=== PATIENT | female | born 1995 | race Caucasian/White ===

== ENCOUNTER 2019-01-24 18:52 | Emergency (ER) | payer OTHER ==
[2019-01-24] MEDS ORDERED: IBUPROFEN 200 MG TAB PO ONE (20:26)
[2019-01-24] MEDS ORDERED: IBUPROFEN 400 MG TAB ONE (20:26)
--- NOTE | 2019-01-24 20:30 | EDPHYS ---
Physician Documentation [facility] Name: Ijeoma Belle Age: 23 yrs Sex: Female : 1995 Arrival Date: 01/24/2019 Time: 18:58 Bed 11 Private MD: ED Physician Rodolfo Ball HPI: 01/24 20:10 This 23 yrs old Female presents to ER via Ambulatory with complaints of Back favian Pain. 20:10 The patient presents with pain that is acute, with no known mechanism of injury. The favian symptoms are located in the low back. Onset: The symptoms/episode began/occurred 6 day(s) ago. The pain radiates to the left low back and right low back. Associated signs and symptoms: The patient has no apparent associated signs or symptoms. Modifying factors: The patient symptoms are alleviated by remaining still, rest, the patient symptoms are aggravated by any movement, bending, lifting, movement. Severity of symptoms: At their worst the symptoms were mild, in the emergency department the symptoms are unchanged. The patient has not experienced similar symptoms in the past. HUMAN RESOURCES TEMP: 19:19 LMP 01/24/2019 bb Historical: - Allergies: 19:19 Amoxicillin; bb - Home Meds: 19:19 None [Active]; bb - PMHx: 19:19 None; bb - PSHx: 19:19 right ankle; bb - Immunization history:: Adult Immunizations up to date. - Social history:: Smoking status: Patient/guardian denies using tobacco, Patient uses alcohol, but reports only rare drinking. Patient/guardian denies using street drugs. - Ebola Screening: : No symptoms or risks identified at this time. - Family history:: not pertinent. ROS: 20:10 Constitutional: Negative for fever, chills, and weight loss, Eyes: Negative for injury, favian pain, redness, and discharge, ENT: Negative for injury, pain, and discharge, Neck: Negative for injury, pain, and swelling, Cardiovascular: Negative for chest pain, palpitations, and edema, Respiratory: Negative for shortness of breath, cough, wheezing, and pleuritic chest pain, Abdomen/GI: Negative for abdominal pain, nausea, vomiting, diarrhea, and constipation, : Negative for injury, bleeding, discharge, and swelling, MS/Extremity: Negative for injury and deformity, Skin: Negative for injury, rash, and discoloration, Neuro: Negative for headache, weakness, numbness, tingling, and seizure, Psych: Negative for depression, anxiety, suicide ideation, homicidal ideation, and hallucinations, Allergy/Immunology: Negative for hives, rash, and allergies, Endocrine: Negative for neck swelling, polydipsia, polyuria, polyphagia, and marked weight changes, Hematologic/Lymphatic: Negative for swollen nodes, abnormal bleeding, and unusual bruising. 20:10 Back: Positive for decreased range of motion, pain at rest, pain with movement. Exam: 20:10 Constitutional: This is a well developed, well nourished patient who is awake, alert, favian and in no acute distress. Head/Face: Normocephalic, atraumatic. Eyes: Pupils equal round and reactive to light, extra-ocular motions intact. Lids and lashes normal. Conjunctiva and sclera are non-icteric and not injected. Cornea within normal limits. Periorbital areas with no swelling, redness, or edema. ENT: Nares patent. No nasal discharge, no septal abnormalities noted. Tympanic membranes are normal and external auditory canals are clear. Oropharynx with no redness, swelling, or masses, exudates, or evidence of obstruction, uvula midline. Mucous membranes moist. Neck: Trachea midline, no thyromegaly or masses palpated, and no cervical lymphadenopathy. Supple, full range of motion without nuchal rigidity, or vertebral point tenderness. No Meningismus. Chest/axilla: Normal chest wall appearance and motion. Nontender with no deformity. No lesions are appreciated. Cardiovascular: Regular rate and rhythm with a normal S1 and S2. No gallops, murmurs, or rubs. Normal PMI, no JVD. No pulse deficits. Respiratory: Lungs have equal breath sounds bilaterally, clear to auscultation and percussion. No rales, rhonchi or wheezes noted. No increased work of breathing, no retractions or nasal flaring. Abdomen/GI: Soft, non-tender, with normal bowel sounds. No distension or tympany. No guarding or rebound. No evidence of tenderness throughout. Skin: Warm, dry with normal turgor. Normal color with no rashes, no lesions, and no evidence of cellulitis. MS/ Extremity: Pulses equal, no cyanosis. Neurovascular intact. Full, normal range of motion. Neuro: Awake and alert, GCS 15, oriented to person, place, time, and situation. Cranial nerves II-XII grossly intact. Motor strength 5/5 in all extremities. Sensory grossly intact. Cerebellar exam normal. Normal gait. Psych: Awake, alert, with orientation to person, place and time. Behavior, mood, and affect are within normal limits. 20:10 Back: pain, that is mild, that is moderate, ROM is painful, normal spinal alignment noted, CVA tenderness, is absent, muscle spasm, is appreciated in the left low back and right low back. Vital Signs: 19:19 BP 116 / 59; Pulse 103; Resp 18 S; Temp 98.5(O); Pulse Ox 100% on R/A; Weight 90.72 kg bb (R); Height 5 ft. 7 in. (170.18 cm) (R); Pain 5/10; 21:48 Pulse 82; Resp 20; Pulse Ox 100% on R/A; aj1 19:19 Body Mass Index 31.32 (90.72 kg, 170.18 cm) MDM: 19:32 Patient medically screened. [facility] 20:10 Data reviewed: vital signs, nurses notes, lab test result(s), radiologic studies, plain [facility] films. 01/24 20:40 Order name: Urine Dipstick--Ancillary (enter results) pr 01/24 20:40 Order name: Urine --Ancillary (enter results) pr 01/24 20:10 Order name: Urine Dipstick-Ancillary (obtain specimen); Complete Time: 20:39 [facility] 01/24 20:10 Order name: Urine Test (obtain specimen); Complete Time: 20:39 [facility] 01/24 20:10 Order name: Lumbar Spine (3 Views) XRAY [facility] Administered Medications: 20:39 Drug: Motrin 600 mg Route: PO; aj1 21:49 Follow up: Response: No adverse reaction aj1 Disposition: 01/24/19 20:30 Discharged to Home. Impression: Low back pain, Sciatica, unspecified side, Scoliosis, unspecified. - Condition is Stable. - Discharge Instructions: Back Pain, Adult, Musculoskeletal Pain, Sciatica, Back Injury Prevention, Nxav-[id number], Back Pain, Adult, Wxpp-al-Elnw, Sciatica, Yigt-vc-Jgud. - Prescriptions for Ibuprofen 600 mg Oral Tablet - take 1 tablet by ORAL route every 8 hours As needed take with food; 21 tablet. Tylenol- Codeine #3 300-30 mg Oral Tablet - take 2 tablets by ORAL route every 6 hours As needed; 24 tablet. Cyclobenzaprine 5 mg Oral Tablet - take 1 tablet by ORAL route 3 times per day As needed; 15 tablet. - Medication Reconciliation Form, Thank You Letter, Antibiotic Education, Prescription Opioid Use form. - Follow up: Private Physician; When: 2 - 3 days; Reason: Recheck today's complaints, Continuance of care, Re-evaluation by your physician. - Problem is new. - Symptoms have improved. Signatures: Dispatcher [employer] EDMarleen Hartman RN RN aj1 Rodolfo Ball MD MD cha Ballard, Brenda, RN RN bb Corrections: (The following items were deleted from the chart) 21:19 20:30 01/24/2019 20:30 Discharged to Home. Impression: Low back pain; Sciatica, favian unspecified side. Condition is Stable. Discharge Instructions: Back Pain, Adult, Musculoskeletal Pain, Sciatica, Back Injury Prevention, Dzxn-iw-Qviu, Back Pain, Adult, Ihou-dj-Fukj, Sciatica, Rzst-sq-Rfoo. Prescriptions for Ibuprofen 600 mg Oral Tablet - take 1 tablet by ORAL route every 8 hours As needed take with food; 21 tablet, Tylenol-Codeine #3 300-30 mg Oral Tablet - take 2 tablets by ORAL route every 6 hours As needed; 24 tablet, Cyclobenzaprine 5 mg Oral Tablet - take 1 tablet by ORAL route 3 times per day As needed; 15 tablet. and Forms are Medication Reconciliation Form, Thank You Letter, Antibiotic Education, Prescription Opioid Use. Follow up: Private Physician; When: 2 - 3 days; Reason: Recheck today's complaints, Continuance of care, Re-evaluation by your physician. Problem is new. Symptoms have improved. favian 21:49 21:19 01/24/2019 20:30 Discharged to Home. Impression: Low back pain; Sciatica, aj1 unspecified side; Scoliosis, unspecified. Condition is Stable. Discharge Instructions: Back Pain, Adult, Musculoskeletal Pain, Sciatica, Back Injury Prevention, Ibrh-bd-Leli, Back Pain, Adult, Nvwu-df-Ukmm, Sciatica, Uisf-re-Igng. Prescriptions for Ibuprofen 600 mg Oral Tablet - take 1 tablet by ORAL route every 8 hours As needed take with food; 21 tablet, Tylenol-Codeine #3 300-30 mg Oral Tablet - take 2 tablets by ORAL route every 6 hours As needed; 24 tablet, Cyclobenzaprine 5 mg Oral Tablet - take 1 tablet by ORAL route 3 times per day As needed; 15 tablet. and Forms are Medication Reconciliation Form, Thank You Letter, Antibiotic Education, Prescription Opioid Use. Follow up: Private Physician; When: 2 - 3 days; Reason: Recheck today's complaints, Continuance of care, Re-evaluation by your physician. Problem is new. Symptoms have improved. favian
--- NOTE | 2019-01-24 20:30 | ER ---
Nurse's Notes [facility] Name: Ijeoma Belle Age: 23 yrs Sex: Female : 1995 Arrival Date: 01/24/2019 Time: 18:58 Bed 11 Private MD: Diagnosis: Low back pain;Sciatica, unspecified side;Scoliosis, unspecified Presentation: 01/24 19:16 Presenting complaint: Patient states: she is having a "really hard time" with her back bb since Thursday can't sit or stand feels like is "locks up". Transition of care: patient was not received from another setting of care. Onset of symptoms was January 18, 2019. Risk Assessment: Do you want to hurt yourself or someone else? Patient reports no desire to harm self or others. Initial Sepsis Screen: Does the patient meet any 2 criteria? No. Patient's initial sepsis screen is negative. Does the patient have a suspected source of infection? No. Patient's initial sepsis screen is negative. Care prior to arrival: None. 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 - Social history:: Smoking status: Patient/guardian denies using tobacco, Patient uses alcohol, but reports only rare drinking. Patient/guardian denies using street drugs. - Ebola Screening: : No symptoms or risks identified at this time. - Family history:: not pertinent. Screenin:10 Abuse screen: Denies threats or abuse. Denies injuries from another. Nutritional aj1 screening: No deficits noted. Tuberculosis screening: No symptoms or risk factors identified. 21:49 Fall Risk None identified. aj1 Assessment: 20:10 General: Appears in no apparent distress. uncomfortable, Behavior is calm, cooperative, aj1 appropriate for age. Pain: Complains of pain in back Pain radiates to buttocks Pain currently is 5 out of 10 on a pain scale. Pain began 6 days ago. Neuro: Level of Consciousness is awake, alert, obeys commands, Oriented to person, place, time, situation, Moves all extremities. Full function Gait is steady, Speech is normal, Facial symmetry appears normal. Cardiovascular: Patient's skin is warm and dry. Respiratory: Airway is patent Respiratory effort is even, unlabored, Respiratory pattern is regular, symmetrical. GI: No signs and/or symptoms were reported involving the gastrointestinal system. : No signs and/or symptoms were reported regarding the genitourinary system. EENT: No signs and/or symptoms were reported regarding the EENT system. Derm: No signs and/or symptoms reported regarding the dermatologic system. Skin is pink, warm \\T\\ dry. normal. Musculoskeletal: Range of motion: intact in all extremities. 20:49 Reassessment: Patient taken to X-Ray via wheelchair, patient discharge pending X-Ray aj results per Dr. Ball. 21:48 Reassessment: Patient appears in no apparent distress at this time. No changes from aj1 previously documented assessment. Patient and/or family updated on plan of care and expected duration. Pain level reassessed. Patient is alert/active/playful, equal unlabored respirations, skin warm/dry/pink. Vital Signs: 19:19 BP 116 / 59; Pulse 103; Resp 18 S; Temp 98.5(O); Pulse Ox 100% on R/A; Weight 90.72 kg bb (R); Height 5 ft. 7 in. (170.18 cm) (R); Pain 5/10; 21:48 Pulse 82; Resp 20; Pulse Ox 100% on R/A; aj1 19:19 Body Mass Index 31.32 (90.72 kg, 170.18 cm) ED Course: 18:58 Patient arrived in ED. mr 19:17 Triage completed. 19:19 Arm band placed on Patient placed in an exam room, on a stretcher, on pulse oximetry. 19:32 Rodolfo Ball MD is Attending Physician. [facility] 20:07 Marleen Mcconnell, BRIANA is Primary Nurse. aj1 20:10 Patient has correct armband on for positive identification. Bed in low position. Call aj1 light in reach. Side rails up X 1. 20:10 No provider procedures requiring assistance completed. aj1 21:01 Lumbar Spine (3 Views) XRAY In Process Unspecified. EDMS 21:49 Patient did not have IV access during this emergency room visit. aj1 Administered Medications: 20:39 Drug: Motrin 600 mg Route: PO; aj1 :49 Follow up: Response: No adverse reaction aj1 Outcome: 20:30 Discharge ordered by . favian : Discharged to home ambulatory. aj1 : Condition: good :49 Discharge instructions given to patient, Instructed on discharge instructions, follow up and referral plans. no drinking with medication, no driving heavy equipment, medication usage, Demonstrated understanding of instructions, follow-up care, medications, Prescriptions given X 3. :49 Patient left the ED. aj1 Signatures: Dispatcher [employer] EDMS Marleen Mcconnell RN RN aj1 Rodolfo Ball MD MD [facility] Jasmin Caro RN RN bb
[2019-01-24 20:58] LABS: Urine Blood TRACE (NEG); Urine Glucose NEGATIVE (NEG); Urine Protein TRACE (NEG); Urine Specific Gravity >1.030 (1.005-1.030); Urine pH 5.5 (5.0-7.0)
--- NOTE | 2019-01-24 21:09 | RAD REPORT ---
EXAM DESCRIPTION: RAD - Lumbar Spine 3 Views - 01/24/2019 9:01 pm CLINICAL HISTORY: PAIN Radiculopathy COMPARISON: No comparisons FINDINGS: Vertebral body heights appear maintained. No compression fracture noted. Disc spaces are m aintained. Mild levoscoliosis of the lumbar spine is present. Vague radiodensities project over both kidneys, possibly kidney stones or stool content. IMPRESSION: Mild levoscoliosis of the lumbar spine.
== END 2019-01-24 21:49 | disposition home or self-care (01) ==
LOC: ER 18:52
DX: M54.30 Sciatica, unspecified side (principal); M41.9 Scoliosis, unspecified; Z88.0 Allergy status to penicillin
CPT/HCPCS: 72100; 81003; 81025; 99284

== ENCOUNTER 2021-01-21 09:13 | Emergency (ER) | payer OTHER, SELFPAY ==
[2021-01-21 10:45] LABS: Absolute Lymphocytes (CBC) 1.7 K/uL (0.7-4.9); Basophils % 0.4 % (0-1.3); Hematocrit 42.4 % (36.0-45.0); Lymphocytes % 32.6 % (15.3-44.8); MPV 9.4 fL (7.6-11.3)
[2021-01-21 10:57] LABS: BUN Blood Urea Nitrogen 10 mg/dL (7-18); Bicarbonate 24 mmol/L (21-32); Glucose Level 87 mg/dL (74-106); Potassium 3.9 mmol/L (3.5-5.1); Sodium Level 141 mmol/L (136-145)
[2021-01-21] MEDS ORDERED: NA CHLORIDE 0.9% 1,000 ML ONE ×2 (11:01→12:46)
[2021-01-21 12:11] LABS: Urine Blood 3+ (NEG); Urine Glucose NEGATIVE (NEG); Urine Protein TRACE (NEG); Urine pH 5.5 (5.0-7.0)
--- NOTE | 2021-01-21 13:44 | ER ---
Nurse's Notes [facility] Name: Ijeoma Belle Age: 25 yrs Sex: Female : 1995 Arrival Date: 01/21/2021 Time: 09:15 Bed 7 Private MD: Diagnosis: Coronavirus infection, unspecified;Volume depletion Presentation: 01/21 09:47 Chief complaint: Patient states: Positive COVID-19 test on January 12. Pt c/o aa5 dizziness, weakness, diarrhea, and nausea. Pt also reports decreased appetite but reports she's been drinking fluids. 09:47 Coronavirus screen: Client presents with at least one sign or symptom that may indicate aa5 coronavirus-19. Standard/surgical mask placed on the client. Provider contacted for isolation considerations. Ebola Screen: Patient negative for fever greater than or equal to 101.5 degrees Fahrenheit, and additional compatible Ebola Virus Disease symptoms. Initial Sepsis Screen: Does the patient meet any 2 criteria? No. Patient's initial sepsis screen is negative. Does the patient have a suspected source of infection? No. Patient's initial sepsis screen is negative. Risk Assessment: Do you want to hurt yourself or someone else? Patient reports no desire to harm self or others. Onset of symptoms was December 2020. 09:47 Acuity: EMILY 3 aa5 09:47 Method Of Arrival: Ambulatory aa5 Triage Assessment: 09:50 General: Appears distressed, uncomfortable, ill, Behavior is cooperative, appropriate bp for age, anxious. Pain: Denies pain. EENT: No deficits noted. Neuro: Reports dizziness. Cardiovascular: No deficits noted. Respiratory: Reports cough that is. GI: Reports diarrhea. : No signs and/or symptoms were reported regarding the genitourinary system. Derm: No deficits noted. Musculoskeletal: No deficits noted. Historical: - Allergies: 09:47 Amoxicillin; aa5 - Home Meds: 09:47 None [Active]; aa5 - PMHx: 09:47 None; aa5 - PSHx: 09:47 right ankle; aa5 - Immunization history:: Adult Immunizations unknown. - Social history:: Smoking status: Patient denies any tobacco usage or history of. Screenin:50 Abuse screen: Denies threats or abuse. Denies injuries from another. Nutritional bp screening: No deficits noted. Tuberculosis screening: No symptoms or risk factors identified. Fall Risk None identified. Assessment: 09:50 General: SEE TRIAGE NOTE. bp 10:40 Reassessment: No changes from previously documented assessment. Patient and/or family bp updated on plan of care and expected duration. Pain level reassessed. Patient is alert, oriented x 3, equal unlabored respirations, skin warm/dry/pink. PT ORTHOSTATIC POSITIVE, PROVIDER NOTIFIED. 12:13 Reassessment: No changes from previously documented assessment. Patient and/or family bp updated on plan of care and expected duration. Pain level reassessed. Patient is alert, oriented x 3, equal unlabored respirations, skin warm/dry/pink. IVF COMPLETED. DISPO PENDING. 13:13 Reassessment: No changes from previously documented assessment. Patient and/or family bp updated on plan of care and expected duration. Pain level reassessed. Patient is alert, oriented x 3, equal unlabored respirations, skin warm/dry/pink. IVF INFUSING. 14:08 Reassessment: PT D/C HOME AMBULATORY, DX WITH CORONAVIRUS INFECTION AND VOLUME bp DEPLETION. Vital Signs: 09:48 BP 117 / 83; Pulse 85; Resp 16 S; Temp 98.7(O); Pulse Ox 99% on R/A; Weight 86.18 kg aa5 (R); Height 5 ft. 7 in. (170.18 cm) (R); 10:10 BP 114 / 75 Supine; Pulse 81; bp 10:12 BP 106 / 79 Sitting; Pulse 92; Resp 17; bp 10:14 BP 109 / 85 Sitting; Pulse 92; bp 10:16 BP 109 / 75 Standing; Pulse 127; bp 11:00 BP 116 / 80; Pulse 76; Resp 16; Pulse Ox 98% ; bp 12:00 BP 111 / 81; Pulse 85; Resp 19; Pulse Ox 100% ; bp 13:00 BP 114 / 74; Pulse 66; Resp 17; Pulse Ox 99% ; bp 14:00 BP 111 / 65; Pulse 65; Resp 17; Temp 98; Pulse Ox 97% ; bp 09:48 Body Mass Index 29.76 (86.18 kg, 170.18 cm) aa5 ED Course: 09:15 Patient arrived in ED. ds1 09:21 Imelda Wilson FNP-C [facility]. kb 09:21 Keegan Presley MD is Attending Physician. kb 09:47 Arm band placed on Patient placed in an exam room, on a stretcher. aa5 09:50 Patient has correct armband on for positive identification. Bed in low position. Call bp light in reach. Side rails up X2. 09:51 Alex Wilburn, RN is Primary Nurse. bp 09:58 Triage completed. aa5 10:25 Inserted saline lock: 20 gauge in right forearm, using aseptic technique. Blood bp collected. 14:10 No provider procedures requiring assistance completed. IV discontinued, intact, bp bleeding controlled, No redness/swelling at site. Pressure dressing applied. Administered Medications: 10:42 Drug: NS 0.9% 1000 ml Route: IV; Rate: 1000 ml; Site: right forearm; bp 14:10 Follow up: IV Status: Completed infusion; IV Intake: 1000ml bp 12:30 Drug: NS 0.9% 1000 ml Route: IV; Rate: 1000 ml; Site: right forearm; bp 14:11 Follow up: IV Status: Completed infusion; IV Intake: 1000ml bp Intake: 14:10 IV: 1000ml; Total: 1000ml. bp 14:11 IV: 1000ml; Total: 2000ml. bp Outcome: 13:44 Discharge ordered by MD. kb 14:10 Discharged to home ambulatory. bp 14:10 Condition: stable 14:10 Discharge instructions given to patient, Instructed on discharge instructions, follow up and referral plans. Demonstrated understanding of instructions, follow-up care. 14:11 Patient left the ED. bp Signatures: Imelda Wilson, ENVIRONMENTAL HEALTH AIDE-C ENVIRONMENTAL HEALTH AIDE-Ckb Martha Hood ds1 Anabel Gusman, RN RN [id number] Grace Fuller 5 Alex Wilburn, RN RN bp Corrections: (The following items were deleted from the chart) 13:33 13:11 BP 113 / 72 Supine; Pulse 82bpm; Resp 16bpm; Pulse Ox 100% RA; mh5 bw 13:33 13:13 BP 109 / 69 Sitting; Pulse 92bpm; Resp 17bpm; Pulse Ox 100% RA; mh5 bw 13:33 13:15 BP 86 / 63 Standing; Pulse 94bpm; Resp 18bpm; Pulse Ox 97% RA; mh5 bw
--- NOTE | 2021-01-21 13:44 | EDPHYS ---
Physician Documentation [facility] Name: Ijeoma Belle Age: 25 yrs Sex: Female : 1995 Arrival Date: 01/21/2021 Time: 09:15 Bed 7 Private MD: ED Physician Keegan Presley HPI: 01/21 12:24 This 25 yrs old Female presents to ER via Ambulatory with complaints of Covid kb + Dizziness, Diarrhea. 12:24 The patient presents to the emergency department with nausea, diarrhea. Possible kb causes: covid. The symptoms are aggravated by nothing. The symptoms are alleviated by nothing. Associated signs and symptoms: Pertinent positives: anorexia, diarrhea, nausea, Pertinent negatives: abdominal pain. Severity of symptoms: At their worst the symptoms were moderate in the emergency department the symptoms are unchanged. The patient has not experienced similar symptoms in the past. The patient has been recently seen by a physician:. Pt reports she tested positive for COVID on 01/12/21. Sneezing began on 01/09/21 so they think that is the first day of illness. Presents for decreased appetite, nausea, diarrhea, dizziness, fatigue and malaise. . Historical: - Allergies: 09:47 Amoxicillin; aa5 - Home Meds: 09:47 None [Active]; aa5 - PMHx: 09:47 None; aa5 - PSHx: 09:47 right ankle; aa5 - Immunization history:: Adult Immunizations unknown. - Social history:: Smoking status: Patient denies any tobacco usage or history of. ROS: 12:23 Cardiovascular: Negative for chest pain, palpitations, and edema, Respiratory: Negative kb for shortness of breath, cough, wheezing, and pleuritic chest pain, MS/Extremity: Negative for injury and deformity, Skin: Negative for injury, rash, and discoloration. 12:23 Constitutional: Positive for fatigue, malaise, poor PO intake. 12:23 Abdomen/GI: Positive for nausea, diarrhea, Negative for abdominal pain. 12:23 Neuro: Positive for dizziness. Exam: 12:24 Constitutional: This is a well developed, well nourished patient who is awake, alert, kb and in no acute distress. Head/Face: Normocephalic, atraumatic. Cardiovascular: Regular rate and rhythm with a normal S1 and S2. No gallops, murmurs, or rubs. Normal PMI, no JVD. No pulse deficits. Respiratory: Lungs have equal breath sounds bilaterally, clear to auscultation and percussion. No rales, rhonchi or wheezes noted. No increased work of breathing, no retractions or nasal flaring. Abdomen/GI: Soft, non-tender, with normal bowel sounds. No distension or tympany. No guarding or rebound. No evidence of tenderness throughout. Skin: Warm, dry with normal turgor. Normal color with no rashes, no lesions, and no evidence of cellulitis. MS/ Extremity: Pulses equal, no cyanosis. Neurovascular intact. Full, normal range of motion. 12:24 Neuro: Orientation: is normal, to person, place, time \T\ situation. Mentation: is normal, able to follow commands, Motor: is normal, moves all fours, Sensation: is normal, Gait: is steady. Vital Signs: 09:48 BP 117 / 83; Pulse 85; Resp 16 S; Temp 98.7(O); Pulse Ox 99% on R/A; Weight 86.18 kg aa5 (R); Height 5 ft. 7 in. (170.18 cm) (R); 10:10 BP 114 / 75 Supine; Pulse 81; bp 10:12 BP 106 / 79 Sitting; Pulse 92; Resp 17; bp 10:14 BP 109 / 85 Sitting; Pulse 92; bp 10:16 BP 109 / 75 Standing; Pulse 127; bp 11:00 BP 116 / 80; Pulse 76; Resp 16; Pulse Ox 98% ; bp 12:00 BP 111 / 81; Pulse 85; Resp 19; Pulse Ox 100% ; bp 13:00 BP 114 / 74; Pulse 66; Resp 17; Pulse Ox 99% ; bp 14:00 BP 111 / 65; Pulse 65; Resp 17; Temp 98; Pulse Ox 97% ; bp 09:48 Body Mass Index 29.76 (86.18 kg, 170.18 cm) aa5 MDM: 09:48 Patient medically screened. kb 12:21 Data reviewed: vital signs, nurses notes. Data interpreted: Pulse oximetry: on room air kb is 100 %. Interpretation: normal. 13:32 Counseling: I had a detailed discussion with the patient and/or guardian regarding: the kb historical points, exam findings, and any diagnostic results supporting the discharge/admit diagnosis, lab results, the need for outpatient follow up, a family practitioner, to return to the emergency department if symptoms worsen or persist or if there are any questions or concerns that arise at home. 01/21 09:57 Order name: CBC with Diff; Complete Time: 10:50 kb 01/21 09:57 Order name: Basic Metabolic Panel; Complete Time: 10:59 kb 01/21 10:59 Order name: Urine Dipstick--Ancillary (enter results); Complete Time: 12:13 em1 01/21 10:59 Order name: Urine --Ancillary (enter results); Complete Time: 12:13 em1 01/21 09:46 Order name: Urine Dipstick-Ancillary (obtain specimen); Complete Time: 10:57 kb 01/21 09:46 Order name: Orthostatics; Complete Time: 10:26 kb 01/21 09:57 Order name: IV Start; Complete Time: 10:26 kb Administered Medications: 10:42 Drug: NS 0.9% 1000 ml Route: IV; Rate: 1000 ml; Site: right forearm; bp 14:10 Follow up: IV Status: Completed infusion; IV Intake: 1000ml bp 12:30 Drug: NS 0.9% 1000 ml Route: IV; Rate: 1000 ml; Site: right forearm; bp 14:11 Follow up: IV Status: Completed infusion; IV Intake: 1000ml bp Disposition: 16:09 Co-signature as Attending Physician, Keegan Presley MD. rn Disposition: 01/21/21 13:44 Discharged to Home. Impression: Coronavirus infection, unspecified, Volume depletion. - Condition is Stable. - Discharge Instructions: Dehydration, Adult, [id number], COVID-19. - Medication Reconciliation Form, Thank You Letter, Antibiotic Education, Prescription Opioid Use form. - Follow up: Emergency Department; When: As needed; Reason: Worsening of condition. Follow up: Private Physician; When: 2 - 3 days; Reason: Recheck today's complaints, Continuance of care, Re-evaluation by your physician. Signatures: Dispatcher [employer] EDImelda Wilson, FINANCE TEACHER-C MAX-Keegan Connor MD MD rn Calderon, Audri, RN RN aa Alex Wilburn RN RN bp Corrections: (The following items were deleted from the chart) 14:11 13:44 01/21/2021 13:44 Discharged to Home. Impression: Coronavirus infection, bp unspecified; Volume depletion. Condition is Stable. Forms are Medication Reconciliation Form, Thank You Letter, Antibiotic Education, Prescription Opioid Use. Follow up: Emergency Department; When: As needed; Reason: Worsening of condition. Follow up: Private Physician; When: 2 - 3 days; Reason: Recheck today's complaints, Continuance of care, Re-evaluation by your physician. kb
[2021-01-21 15:42] VITALS: BP 111/65; TEMP 98; O2SAT 97
== END 2021-01-21 14:11 | disposition home or self-care (01) ==
LOC: ER 09:13
DX: U07.1 COVID-19 (principal); E86.9 Volume depletion, unspecified; Z88.1 Allergy status to other antibiotic agents
CPT/HCPCS: 36415; 80048; 81003; 81025; 85025; 96360; 96361; 99284; J7030